=== PATIENT | female | born 1965 | race Caucasian/White ===

== ENCOUNTER 2020-10-04 15:02 | Emergency (ER) | payer OTHER, SELFPAY ==
[2020-10-04 15:16] VITALS: BP 124/79; PULSE 81; RESP 20; TEMP 37.7; O2SAT 100
--- NOTE | 2020-10-04 15:52 | ED.GENADULT ---
HPI - General Adult General Chief complaint: Abdominal Pain Stated complaint: bladder Time Seen by Provider: 10/04/20 15:38 Source: patient and RN notes reviewed Mode of arrival: ambulatory Limitations: no limitations History of Present Illness HPI narrative: 55-year-old female who presents to [facility] care with complaints of abdominal pain under left rib area that radiates across umbilical area to the right middle abdomen for the past 6 weeks. Patient states that she had a previous scope in August of 2019 and was diagnosed with gastritis and was treated with Dexilant which seemed to help. She states that prior to she started having problems with abdominal pain, nausea, some diarrhea and saw the PA at Dr Love's office and was started on Carafate which she took but it made her nauseated. Patient states that she has been taking Pepcid and omeprazole which has not resolved her discomfort, nausea or occasional diarrhea. Patient states that she has been living off of soup, bread and cream of wheat. Patient states that she has not tried to get ahold of Dr Gaxiola's office to make an appointment or to do virtual visit. Patient states that pain increases after eating depending on what she eats with nausea and some diarrhea, denies any blood in stools. MD complaint: left upper abdominal pain radiates across umbilical area to right middle Onset (ago): week(s) (6) Location: abdomen Radiation: abdomen and periumbilical Severity: moderate Severity scale (1-10): 5 Quality: aching Pain Consistency: intermittent Relieving factors: none Exacerbating factors: eating Associated symptoms: other (nausea no emesis, some diarrhea) Treatments prior to arrival: other (pepcid,omeprazole,zofran) Related Data Home Medications Medication Instructions Recorded Confirmed famotidine [Pepcid] 20 mg PO DAILY 09/19/19 09/24/19 Allergies Allergy/AdvReac Type Severity Reaction Status Date / Time azithromycin Allergy Intermediate Hives Verified 08/24/20 15:57 Penicillins Allergy Intermediate Hives Verified 08/24/20 15:57 Quinolones Allergy Intermediate Swelling Verified 08/24/20 15:57 of Lip/Tongue/Throat Sulfa (Sulfonamide Allergy Intermediate Hives Verified 08/24/20 15:57 Antibiotics) latex Allergy Mild Rash Verified 08/24/20 15:57 Review of Systems Review of Systems: Narrative: CONSTITUTIONAL: Denies fever, chills, or sweats. EYES: Denies visual changes, redness, or discharge. ENT: Denies rhinorrhea, congestion, sore throat, or otalgia. CARDIOVASCULAR: Denies chest pain, palpitations, or edema. RESPIRATORY: Denies cough or dyspnea. GASTROINTESTINAL: Positive abdominal pain,positive nausea, no vomiting, occasional diarrhea. GENITOURINARY: Denies dysuria or hematuria. SKIN: Denies rash or itching. MUSCULOSKELETAL: voices mild back pain,no joint pain, or myalgia. NEUROLOGIC: Denies headache, numbness, or weakness. PSYCHIATRIC: Denies anxiety or depression. All systems reviewed & are unremarkable except as noted in HPI and below PMFSH Past Medical History Medical History (Updated 10/06/20 @ 09:29 by Hanny Hummel NP) Abdominal pain Dysphagia GERD (gastroesophageal reflux disease) History of pulmonary embolism Kidney stone Surgical History Surgical History (Updated 10/04/20 @ 15:53 by Hanny Hummel NP) H/O lithotripsy H/O sinus surgery Family History Family History Father Family history of diabetes mellitus in first degree relative Family history of malignant neoplasm of thyroid Other Diabetes mellitus Social History Social History Smoking status: Never smoker Second hand tobacco smoke exposure: No Alcohol intake: never Substance use: never Substance use type: does not use Gender identity (if verbalized by the patient): Female Comments At time of signature, agree with carmina
== END 2020-10-04 16:24 | disposition home or self-care (01) ==
PROVIDERS: Emergency Provider Registered Nurse; PCP Family Medicine
DX: K29.70 Gastritis, unspecified, without bleeding (principal); K21.9 Gastro-esophageal reflux disease without esophagitis; Z86.711 Personal history of pulmonary embolism
CPT/HCPCS: 81003; 99213; G0463

== ENCOUNTER 2020-10-29 07:07 | Outpatient (CLI) | payer OTHER, SELFPAY ==
--- NOTE | ~2020-10-29 | NM_ITS ---
EXAM: NM gastric emptying study DATE: 10/29/2020 11:43 INDICATION: Nausea. TECHNIQUE: A gastric emptying study was performed using the methodology of Héctor ROSALES, et al. J Nucl Med 2007; 48:568-572. The patient was given a meal consisting of 2 scrambled eggs labeled with 1.059 mCi Tc-99m sulfur colloid, 2 slices of toast, two packages of jam, and approximately 120 mL of water . Simultaneous anterior and posterior 1-min images of the abdomen were obtained with the patient supi ne at multiple time points over a total period of 4 hours. The geometric mean of anterior and posteri or views was determined, and the percentage retention was calculated for each time point. COMPARISON: CT abdomen and pelvis 01/11/17 FINDINGS: Gastric retention of the radiotracer-labeled meal was 59%, 28%, and 2% at the 1-hour, 2-ho ur, and 4-hour time points, respectively. With this technique, apparent rapid gastric emptying is sug gested by <30% gastric retention at 1 hour. Delayed gastric emptying is defined by gastric retention of >90% at 1 hour, >60% retention at 2 hours, or >10% retention at 4 hours. IMPRESSION: 1. Normal gastric emptying. Reviewed, dictated and finalized at location A. R MANAGEMENT SPECIALIST IMPRESSION: 1. Normal gastric emptying.
== END 2020-10-29 07:08 | disposition home or self-care (01) ==
PROVIDERS: PCP Family Medicine; Visit Provider Internal Medicine Gastroenterology
DX: R11.0 Nausea (principal)
CPT/HCPCS: 78264; A9541

== ENCOUNTER → 2020-11-06 15:19 | Outpatient (CLI) | payer OTHER, SELFPAY ==
--- NOTE | ~2020-11-06 | XR_ITS ---
XR_CERV2-3V_CR INDICATION: Cervicalgia TECHNIQUE: 4 views of the cervical spine. FINDINGS: No prior studies for comparison. The cervical spine is visualized to the cervicothoracic junction. There is no prevertebral soft tiss ue swelling, listhesis, or loss of vertebral body height. Intervertebral disc spaces are normal. Th e osseous central canal is patent. No displaced cervical spine fractures are identified. IMPRESSION: 1. No acute osseous abnormality of the cervical spine. Reviewed, dictated and finalized at location B. HEN AIDE
== END ==
PROVIDERS: Visit Provider Nurse Practitioner Family
DX: M54.2 Cervicalgia (principal)
CPT/HCPCS: 72040

== ENCOUNTER → 2021-04-06 10:27 | Outpatient (CLI) | payer OTHER, SELFPAY ==
--- NOTE | ~2021-04-06 | MM_ITS ---
EXAMINATION: MM screening [facility] BI w nadine HISTORY: Screening mammogram TECHNIQUE: Craniocaudal and mediolateral oblique 3-D tomosynthesis images were obtained and synthetic 2-D images were generated. CAD analysis was submitted and interpreted. COMPARISON: 05/04/2017, 05/02/2016, 04/08/2015 BREAST PARENCHYMAL COMPOSITION: The breasts are heterogeneously dense, which may obscure small masses . FINDINGS: There is no evidence of suspicious mass, calcification, or architectural distortion to sugg est malignancy in either breast. There has been no suspicious interval change. IMPRESSION: 1. No mammographic evidence of malignancy. 2. Recommend routine screening mammography in one year. BI-RADS Category 1: Negative Reviewed, dictated and finalized at location A.
== END ==
PROVIDERS: PCP Family Medicine; Visit Provider Nurse Practitioner
DX: Z12.31 Encounter for screening mammogram for malignant neoplasm of breast (principal)
CPT/HCPCS: 77063; 77067

== ENCOUNTER → 2021-09-15 09:35 | Outpatient (CLI) | payer OTHER, SELFPAY ==
--- NOTE | ~2021-09-15 | XR_ITS ---
EXAMINATION: CT abdomen pelvis wo con, XR abdomen/kub 1V DATE: 09/15/2021 10:10 (accession [id number]), 09/15/2021 10:12 (accession [id number]) INDICATION: Renal stones TECHNIQUE: Computed tomography (CT) of the abdomen and pelvis was performed without intravenous contr ast. The dose-length product was 278.19 mGy-cm. Automated exposure control and iterative reconstructi on technique were employed. KUB. COMPARISON: None. FINDINGS: There is lower lobe atelectasis. Heart size normal. No significant pleural or pericardial e ffusion. The liver, spleen, pancreas, adrenal glands are unremarkable. There is a 2 mm nonobstructing left renal stone. There is an additional 1 mm stone in the left kidney. No hydronephrosis. There is a punctate 1-2 mm nonobstructing right renal stone. There is a subtle hypodensity in the right kidney measuring approximately 1.3 cm, consistent with a cyst. Gallbladder is mildly distended. Nonobstruct nakul bowel gas pattern. Small fat-containing umbilical hernia. No lymphadenopathy. There are degenerat nakul changes of the hips. No acute osseous abnormality. KUB: There is a left pelvic phlebolith. There are calcifications in the upper abdomen which likely re presents costal cartilage calcifications. Nonobstructive bowel gas pattern. IMPRESSION: 1. Nonobstructing bilateral nephrolithiasis. Reviewed, dictated and finalized at location A. ER/DRIVER IMPRESSION: 1. Nonobstructing bilateral nephrolithiasis.
== END ==
PROVIDERS: PCP Family Medicine; Visit Provider Urology
DX: N20.0 Calculus of kidney (principal); K42.9 Umbilical hernia without obstruction or gangrene; N28.1 Cyst of kidney, acquired
CPT/HCPCS: 74018; 74176

== ENCOUNTER → 2021-09-30 09:22 | Outpatient (CLI) | payer OTHER, SELFPAY ==
--- NOTE | ~2021-09-30 | MMUS_ITS ---
EXAMINATION: MM diagnostic nicko LT w nadine, US breast LT limited HISTORY: Pain in the upper outer quadrant of the left breast and left breast lump at the 8:00 locatio n. TECHNIQUE: Craniocaudal, mediolateral, and mediolateral oblique 3-D tomosynthesis images of the left breast were performed and synthetic 2-D images were generated. CAD analysis was submitted and interpr eted. High resolution limited left breast ultrasound was performed. COMPARISON: 04/06/2021, 05/04/2017, 05/02/2016 BREAST PARENCHYMAL COMPOSITION: There are scattered areas of fibroglandular density. FINDINGS: MAMMOGRAPHIC FINDINGS: There is no evidence of suspicious mass, calcification, or architectural distortion to suggest malig moises. There has been no suspicious interval change. No mammographic correlate is identified for the patient's reported breast pain or palpable lump. ULTRASOUND: There is no evidence of focal abnormal solid or cystic mass in the vicinity of the patient's breast p ain or reported palpable lump. IMPRESSION: 1. No specific mammographic or sonographic correlate is identified for the patient's breast pain or r eported palpable lump. Further evaluation at this time should be based on clinical assessment. Contin ued follow-up physical examination is recommended. 2. Routine screening mammography is recommended. BI-RADS Category 1: Negative Reviewed, dictated and finalized at location A. Y ANALYST IMPRESSION: 1. No specific mammographic or sonographic correlate is identified for the brennon ent's breast pain or reported palpable lump. Further evaluation at this time sh ould be based on clinical assessment. Continued follow-up physical examination is recommended. 2. Routine screening mammography is recommended. BI-RADS Category 1: Negative
== END ==
PROVIDERS: PCP Family Medicine; Visit Provider Nurse Practitioner
DX: R92.8 Other abnormal and inconclusive findings on diagnostic imaging of breast (principal)
CPT/HCPCS: 76642; 77061; 77065; G0279

== ENCOUNTER → 2021-11-05 16:05 | Outpatient (CLI) | payer OTHER, SELFPAY ==
--- NOTE | ~2021-11-05 | DEXA_ITS ---
Bone Density Report Name: NITIN BARBOZA Age: 56 Sex: Female Ethnicity: White Date of : 1965 Indication: postmenopausal; screening for osteoporosis; Referring Provider: Fab, Sherry Study: Bone densitometry was performed. Exam Date: November 05, 2021 Accession number: [id number] Bone Density: Region BMD T-score Z-score Classification AP Spine (L1-L4) 0.918 -1.2 -0.1 Osteopenia Femoral Neck (Left) 0.648 -1.8 -0.7 Osteopenia Total Hip (Left) 0.781 -1.3 -0.6 Osteopenia Femoral Neck (Right) 0.634 -1.9 -0.9 Osteopenia Total Hip (Right) 0.790 -1.2 -0.6 Osteopenia Total Hip Mean 0.786 -1.3 -0.6 Osteopenia World Health Organization criteria for BMD impression classify patients as: Normal (T-score at or above -1.0), Osteopenia (T-score between -1.0 and -2.5), or Osteoporosis (T-score at or below -2.5). 10-year Fracture Risk(1): Major Osteoporotic Fracture 7.8% Hip Fracture 0.9% Reported Risk Factors: [place] (), Neck BMD=0.634, BMI=25.3 (1) FRAX(R) Version 3.08. Fracture probability calculated for an untreated patient. Fracture probability may be lower if the patient has received treatment. Clinical Information Provided by Patient: Has used the following medications: Vitamin D Patient maximum height was 64 Menopause Age: 51 Does not regularly consume dairy products Onset of menses at age 13 Number of children 1 Impression: The patient has low bone mass, based on the Right Femoral Neck T-score. The patient has an estimated ten-year risk of hip fracture of 0.9% and an estimated ten-year risk of major fracture of 7.8%, based on the WHO FRAX algorithm. Discussion: BONE DENSITY IS LOW AT ONE OR MORE SKELETAL SITES. This patient's lowest T-score is low at one or more skeletal sites. It meets the World Health Organization's (WHO) criteria for ?low bone mass? (T-score between -1.0 and -2.5). The patient's 10-year risk of fracture as calculated by FRAX is less than the threshold where pharmacological therapy is recommended by the National Osteoporosis Foundation (NOF). However, all treatment decisions require clinical judgment and consideration of individual patient factors, including patient preferences, comorbidities, previous drug use, risk factors not captured in the FRAX model (e.g., frailty, falls, vitamin D deficiency, increased bone turnover, interval significant decline in bone density) and possible under or overestimation of fracture risk by FRAX. The patient should follow a healthful lifestyle (good nutrition with adequate calcium and vitamin D, and appropriate weight-bearing exercise). Follow-Up: Consider repeating this study in 2 to 3 years to reassess this patient's status, or sooner if there is some new clinical indication. Reported by: AMANDA on 11/05/2021 4:17:00 PM.
== END ==
PROVIDERS: PCP Family Medicine; Visit Provider Nurse Practitioner
DX: Z13.820 Encounter for screening for osteoporosis (principal); M85.88 Other specified disorders of bone density and structure, other site; M85.852 Other specified disorders of bone density and structure, left thigh; M85.851 Other specified disorders of bone density and structure, right thigh
CPT/HCPCS: 77080

== ENCOUNTER → 2021-12-31 10:35 | Outpatient (CLI) | payer OTHER, SELFPAY ==
--- NOTE | ~2021-12-31 | XR_ITS ---
XR chest 2V DATE: 12/31/2021 11:17 INDICATION: History of pulmonary embolism, pulmonary infarction TECHNIQUE: 2 views COMPARISON: 04/19/2017 PA chest FINDINGS: There is bilateral hyperinflation. No pulmonary infiltrate or consolidation, pleural effusi on or pulmonary vascular congestion or pneumothorax is detected. Normal heart size. No hilar or media stinal enlargement. Diffuse osteopenia. IMPRESSION: Bilateral hyperinflation; no active cardiopulmonary disease Reviewed, dictated and finalized at location A.
== END ==
PROVIDERS: PCP Family Medicine; Visit Provider Internal Medicine Pulmonary Disease
DX: Z86.711 Personal history of pulmonary embolism (principal); Z87.09 Personal history of other diseases of the respiratory system; Z78.9 Other specified health status; J45.20 Mild intermittent asthma, uncomplicated; J30.1 Allergic rhinitis due to pollen; R09.82 Postnasal drip; R91.8 Other nonspecific abnormal finding of lung field
CPT/HCPCS: 71046

== ENCOUNTER 2022-03-29 08:57 | Outpatient (CLI) | payer OTHER, SELFPAY ==
--- NOTE | ~2022-03-29 | US_ITS ---
EXAMINATION: US abdomen complete DATE: 03/29/2022 10:00 INDICATION: Nausea TECHNIQUE: Multiple grayscale and Doppler ultrasound images of the abdomen were obtained. COMPARISON: 08/12/2019 FINDINGS: The head and body of the pancreas are normal. The pancreatic tail is obscured by bowel gas. The liver is normal with normal echogenicity and echotexture. No surface nodularity. Normal hepatope rubi flow in the main portal vein. The gallbladder is normal with no abnormal wall thickening, pericho lecystic fluid or stones. The normal common bile duct measures 5 mm. There was no sonographic Correa sign. The visualized portions of the aorta and inferior vena cava are normal. The right kidney measures 9.1 x 3.9 x 4.4 cm and contains a 1.6 cm cyst. The left kidney measures 9.7 x 4.2 x 4.1 cm. The kidneys demonstrate normal parenchymal echogenicity. There is no hydronephrosis. The spleen is normal in appearance and measures 9.6 cm. IMPRESSION: 1. No sonographic correlate for the patient's symptoms. Reviewed, dictated and finalized at location B.
== END 2022-03-29 08:58 | disposition home or self-care (01) ==
PROVIDERS: PCP Family Medicine; Visit Provider Nurse Practitioner
DX: R11.0 Nausea (principal); K21.9 Gastro-esophageal reflux disease without esophagitis; R10.12 Left upper quadrant pain
CPT/HCPCS: 76700

== ENCOUNTER 2022-04-01 10:52 | Outpatient (CLI) | payer OTHER, SELFPAY | END 2022-04-01 10:53 | disposition home or self-care (01) | PROVIDERS: Visit Provider Otolaryngology | DX: H93.13 Tinnitus, bilateral (principal) | CPT/HCPCS: 92552; 92556; 92567 ==

== ENCOUNTER → 2022-04-04 11:22 | Outpatient (CLI) | payer OTHER, SELFPAY ==
--- NOTE | ~2022-04-04 | US_ITS ---
EXAMINATION: US transvaginal DATE: 04/04/2022 11:57 INDICATION: Pelvic pain and bloating Comparison:No prior studies for comparison. TECHNIQUE: Multiple endovaginal sonographic images of the pelvis performed. FINDINGS: The uterus measures 5.7 x 3.1 x 3.9 cm. The endometrial complex measures 3 mm. The right ovary measures 2.4 x 1 x 1.3 cm and the left ovary measures 2.5 x 1.1 x 1.5 cm. There are small follicles in each ovary. Normal doppler signal in both ovaries. There is no free fluid in the pelvis. There are no abnormal masses seen on either side. IMPRESSION: 1. Unremarkable pelvic ultrasound. Reviewed, dictated and finalized at location A.
== END ==
PROVIDERS: PCP Family Medicine; Visit Provider Nurse Practitioner
DX: R10.2 Pelvic and perineal pain (principal)
CPT/HCPCS: 76830

== ENCOUNTER 2022-04-15 09:25 | Outpatient (CLI) | payer OTHER, SELFPAY ==
--- NOTE | ~2022-04-15 | NM_ITS ---
NM hepatobiliary w pharm Procedure: Hepatobiliary scan performed following IV administration 5.1 mCi Tc 99m Choletec. At 60 m inutes 5.1 mcg CCK administered IV for evaluation of gallbladder ejection fraction. Indication: Upper quadrant pain. Nausea. Comparison: Ultrasound dated 03/29/2022 Findings: There is normal radiotracer uptake in the liver parenchyma with prompt excretion into the b iliary tract. Gallbladder visualized at 30 minutes. Small bowel visualized at 20 minutes. Gallbla dder ejection fraction measures 4 %. (Normal is considered 10-90%, but most patients with gallbladder dysfunction have GBEF of less than 35%) Impression: 1: Low gallbladder ejection fraction measuring 4%. Low GBEF is associated with gallbladder dysfuncti on, although not specific for acute or chronic cholecystitis. Reviewed, dictated and finalized at location A. Impression: 1: Low gallbladder ejection fraction measuring 4%. Low GBEF is associated with gallbladder dysfunction, although not specific for acute or chronic cholecysti tis.
== END 2022-04-15 09:26 | disposition home or self-care (01) ==
PROVIDERS: PCP Family Medicine; Visit Provider Nurse Practitioner
DX: R10.9 Unspecified abdominal pain (principal); R10.12 Left upper quadrant pain; K21.9 Gastro-esophageal reflux disease without esophagitis; R14.0 Abdominal distension (gaseous); R93.3 Abnormal findings on diagnostic imaging of other parts of digestive tract
CPT/HCPCS: 78227; A9537; J2805

== ENCOUNTER 2022-05-02 00:12 | Day surgery (SDC) | payer OTHER, SELFPAY ==
[2022-04-25 14:54] VITALS: BMI 24.5
--- NOTE | 2022-04-25 15:04 | PC.NURSE ---
Report to the Outpatient Waiting Room, entrance under the green pavilion located off [facility], at time 0600 on date 05/02/22. OR Time: 0730. - You and your visitor will be asked a series of questions to screen for COVID 19 for your protection. - Only one visitor is allowed at this time. - The patient visitor is requested to leave or wait in car when not with patient. - A mask is required within the hospital. Patients may have clear liquids (water, carbonated beverages, clear teas, apple juice) until 3 hours prior to surgery with a maximum of 20 ounces. - No food from midnight until time of surgery Take the following medications with a SIP of water the morning of surgery: NONE Medications to discontinue per physician: N/A Date to take last dose: N/A Please no make-up, nail [place] islander, hairspray, perfume, deodorant, or body powder the day of surgery. No jewelry (including any body piercings) or valuables the day of surgery, leave them at home. Please take a shower or bath the night before, or the morning of, surgery with an antibacterial soap (HIBICLENS). Wear comfortable, loose fitting clothing. - Jewelry must be removed prior to entering the operating room. Rings and piercings that are not removed may be cut off. - The hospital will not accept responsibility for valuables. - Please leave all valuables, including medications, at home the day of surgery. If you are going home after surgery, a licensed local company flatbed truck driver must drive you home. - NO public transportation without another adult. - We recommend that an adult stay with you for 24 hours following discharge. - We also recommend that you do not drive, make important decision, drink alcoholic beverages, or take any drugs that were not prescribed by your health care provider for at least 24 hours after your discharge time. Follow any additional instructions given to you from your surgeon. If you or anyone in your household have experienced Covid symptoms in the past week, please notify your surgeon or the nurse liaison at the phone number below for possible testing. Telephone instructions given to PT - NITIN BARBOZA and asked if any additional questions and then verbalized understanding. Patient advised to call surgeon office or pre surgery nurse liaison [phone] if any additional questions.
[2022-05-02] VITALS (9 sets, daily range): BP systolic 114–131; BP diastolic 52–74; PULSE 54–77; RESP 11–16; TEMP 36.2–36.6; O2SAT 97–100
--- NOTE | 2022-05-02 06:05 | ECG_ITS ---
Measurements Intervals [place] Rate: 68 P: 53 MD: 154 QRS: 67 QRSD: 85 T: 25 QT: 411 QTc: 439 Interpretive Statements SINUS RHYTHM NORMAL ECG NO PREVIOUS ECG AVAILABLE FOR COMPARISON Electronically Signed On 05-02-2022 14:30:06 CDT by Shekhar Oliva M.D.
--- NOTE | 2022-05-02 07:59 | WPDHPUPDATE1 ---
History and Physical Update Update Date/Time: 05/02/22 07:59 History and Physical has been reviewed, including an updated exam of the patient. There are NO changes in the patient's condition. Risks, benefits, and alternatives have been discussed and questions answered. Patient agrees to proceed with procedure.
[2022-05-02] MEDS: ACETAMINOPHEN 500 MG TABLET 1000 MG PO (08:05)
[2022-05-02] MEDS: LACTATED RINGERS 1,000 ML 30 ML IV CONT ×2 (08:31→11:14)
[2022-05-02] MEDS: KETOROLAC 15 MG/ML VIAL (*BKC) IV PUSH (08:31)
[2022-05-02 08:49] LABS: Alanine Aminotransferase 19 U/L (6-35); Albumin Level 4.2 g/dL (3.5-5.1); Alkaline Phosphatase 75 U/L (38-126); Amylase 133 U/L (30-110); Aspartate Amino Transferase 35 U/L (14-36); Bilirubin,Total 0.3 mg/dL (0.2-1.3); Lipase 307 U/L (23-300)
--- NOTE | 2022-05-02 08:49 | WPDANESEPPF ---
Anes - Initial Pre Proc Eval Procedure: Operation Date: 05/02/22 09:30 Proposed Procedures p Laparoscopic Cholecystectomy - Aura Aguirre MD s Open Umbilical Hernia Repair - Aura Aguirre MD Date/Time: 05/02/22 08:49 Surgeon: Aura Aguirre MD Pre Op Diagnosis: Umb Hernia Patient Data Age: 56 Gender: F Height: 1.63 m Weight: 65.4 kg Last Vital Signs Temp 36.6 C 05/02/22 07:36 Pulse 61 05/02/22 07:36 Resp 16 05/02/22 07:36 BP 129/65 05/02/22 07:36 Pulse Ox 100 05/02/22 07:36 O2 Del Method Room Air 05/02/22 07:36 Allergies Allergy/AdvReac Type Severity Reaction Status Date / Time Quinolones Allergy Severe Swelling Verified 05/02/22 07:53 of Lip/Tongue/Throat azithromycin Allergy Intermediate Hives Verified 05/02/22 07:53 Penicillins Allergy Intermediate Hives Verified 05/02/22 07:53 Sulfa (Sulfonamide Allergy Intermediate Hives Verified 05/02/22 07:53 Antibiotics) latex Allergy Mild Rash Verified 05/02/22 07:53 ciprofloxacin [From Cipro] AdvReac Intermediate Headache Verified 05/02/22 07:53 Home Medications Medication Instructions Recorded Confirmed Type dicyclomine 10 mg capsule 10 mg PO TID PRN abdominal 01/24/22 05/02/22 Rx discomfort #90 caps Laboratory Tests 05/02/22 07:38 Total Bilirubin 0.3 mg/dL mg/dL (0.2-1.3) Direct Bilirubin 0.0 mg/dL mg/dL (0-0.3) AST 35 U/L U/L (14-36) ALT 19 U/L U/L (6-35) Alkaline Phosphatase 75 U/L U/L (38-126) Total Protein 7.0 g/dL g/dL (6.3-8.2) Albumin 4.2 g/dL g/dL (3.5-5.1) Amylase 133 U/L H U/L (30-110) Lipase 307 U/L H U/L (23-300) Patient hx anesthesia problems: post op nausea/vomiting Family hx anesthesia problems: post op nausea/vomiting Results Review: All pre-operative results and documents have been reviewed as part of the pre-operative evaluation. [facility] Past Medical History Medical History Abdominal bloating Abdominal pain Abdominal pain BMI 24.0-24.9, adult Colon cancer screening Dyspepsia Dysphagia Dysphagia GERD (gastroesophageal reflux disease) History of pulmonary embolism IBS (irritable bowel syndrome) Kidney stone LUQ abdominal pain Nausea Surgical History Surgical History H/O lithotripsy H/O sinus surgery Family History Family History Father Family history of diabetes mellitus in first degree relative Family history of malignant neoplasm of thyroid Other Diabetes mellitus Social History Social History Smoking status: Never smoker Second hand tobacco smoke exposure: No Alcohol intake: never Substance use: never Substance use type: does not use Living arrangements: with family Gender identity (if verbalized by the patient): Female Spiritual care concerns: No Anes - Eval Final PreProcedure Day of Procedure 05/02/22 08:49 Patient weight: normal Heart: regular rate and rhythm Lungs: clear to auscultation Airway: Mallampati scale class II Neurological: alert and oriented Last oral intake: >/= 8 hours Emergent: no Anesthetic plan: proceed Anesthesia type and monitoring: general ETT and standard monitoring Results Review: All pre-operative results and documents have been reviewed as part of the pre-operative evaluation. Informed Consent: The patient's anesthetic plan and its attendant risks and benefits were discussed with the patient/family/POA. Questions were solicited and answers provided to the satisfaction of the patient/family/POA.
[2022-05-02] MEDS: SCOPOLAMINE 1.5 MG PATCH TRANSDERM (08:55)
[2022-05-02] MEDS: ceFAZolin 2 GM/D5W 50 ML 2 GM/50 ML BAG IVPB (09:12)
[2022-05-02] MEDS: BUPIVACAINE/EPINEPHRINE 0.25% 50 ML VIAL 30 ML INFILTRATE (09:12)
--- NOTE | 2022-05-02 10:13 | W.PM.PROC2 ---
Procedure Note - Detailed Date of Procedure 05/02/22 Pre-op Diagnosis chronic cholecystitis, umbilical hernia Post-op Diagnosis Same Procedure Performed laparoscopic cholecystectomy, primary repair umbilical hernia Surgeon Aura Aguirre MD Anesthesia General and Local Indications Pt is a 56 y/o F presenting c chronic cholecystitis and biliary dyskinesia as well as umbilical hernia Findings chronic cholecystitis, small umbilical hernia Description of Procedure The patient was taken to the operating room placed in the supine position. After adequate induction of general anesthesia, the patient was prepped and draped in normal sterile fashion. A time-out was then performed to verify the patient's identity as well as the procedure being performed. I then made a 5 mm incision in the infraumbilical region. I was able to identify the umbilical hernia at this point and I was able to place the Veress needle throught the defect. Once the Veress needle was placed into the peritoneal cavity, CO2 gas was then insufflated. After adequate pneumoperitoneum was achieved, the Veress needle was removed and a 5 mm optiview trocar was placed through this incision under direct visualization. I then placed the laparoscope through this trocar site and under direct visualization placed a further 12 mm subxiphoid port as well as 2 additional 5 mm ports in the right upper abdomen. The gallbladder was then identified and was noted to be moderately inflamed and distended. I was able to place a grasper at the dome of the gallbladder and this was retracted anterior and cephalad up over the liver. A 2nd retractor was then placed at the infundibulum and retracted laterally, this allowed visualization of the triangle of Calot. I then was able to visualize the cystic duct in its entirety from its proximal insertion into the gallbladder, to its distal junction with the common hepatic/common bile duct junction. At this point, I carefully skeletonized the proximal cystic duct with the [place] dissector. I then clipped and transected the proximal cystic duct. Next I visualized the cystic artery. Again the artery was skeletonized, clipped, and transected. I then used the Bovie cautery to take down the peritoneal attachments of the gallbladder off the liver bed. This was somewhat difficult given the amount of inflammation in the posterior space. Once the gallbladder specimen was completely detached, an endo-pouch was placed through the 12 mm port site. I then placed the gallbladder specimen into the Endo pouch and removed the endo-pouch from the 12 mm port site. The specimen will now be sent to pathology for further review. I then copiously irrigated the right upper quadrant. Hemostasis was noted in the liver bed, the clips were noted to be in good position on both the cystic duct stump and the cystic artery stump. No other pathology was noted in the right upper quadrant. I then moved the laparoscope to the subxiphoid port. No iatrogenic injury or other pathology was noted in the lower abdomen. I then closed the 12 mm trocar site under direct visualization using the Candido cone and 0 Vicryl suture. At this point, the abdomen was desufflated and all ports removed. I then extended the 5 mm infraumbilical incision. I was able to then separate the umbilicus from the hernia sac. The hernia was reduced back into the abdominal cavity. The defect was noted to be about 1 cm. Given the small defect, I closed this primarily with interrupted 0 Ethibond sutures. The umbilicus was then tacked back down to the fascia using a 3.0 Vicryl U stitch. The subcutaneous tissue was closed with 3.0 Vicryl suture. All port sites were then closed with 4.O Monocryl subcuticular sutures. Dermabond was placed on each incision. The patient tolerated the procedure well, was extubated in the operating room postoperative and will be transferred to the recovery room in stable condition Estimated Blood Loss 5 Dr
--- NOTE | 2022-05-02 10:37 | SUR.PHASEI ---
1033- oral airway removed.
[2022-05-02] MEDS: fentaNYL CITRATE INJ (*CRX) 100 MCG/2 ML VIAL 25 MCG IV PUSH ×2 (10:53→11:03)
[2022-05-02] MEDS: oxyCODONE HCL (*CRX) 5 MG TAB IR PO (11:53)
== END 2022-05-02 12:40 | disposition home or self-care (01) ==
PROVIDERS: PCP Family Medicine; Visit Provider Surgery
PROC: 0FT44ZZ Resection of Gallbladder, Percutaneous Endoscopic Approach (ICD-10-PCS; CPT 47562; principal; 2022-05-02 09:30)
PROC: (CPT 47562; 2022-05-02 09:30)
DX: K81.1 Chronic cholecystitis (principal); K42.9 Umbilical hernia without obstruction or gangrene; K58.9 Irritable bowel syndrome, unspecified; K21.9 Gastro-esophageal reflux disease without esophagitis
CPT/HCPCS: 47562; 36415; 80076; 82150; 83690; 86850; 86900; 86901; 88304; 93005; A9270; J0690; J1100; J1885; J2250; J2405; J2704; J2710; J3010; J7030; J7120